=== PATIENT | male | born 1960 | race Caucasian/White ===

== ENCOUNTER → 2019-11-29 12:13 | Outpatient (CLI) | payer OTHER, SELFPAY ==
--- NOTE | ~2019-11-29 | CT_ITS ---
EXAMINATION: CT lung screening EXAM DATE: 11/29/2019 12:45 INDICATION: Personal history of nicotine dependence. TECHNIQUE: Spiral low dose CT of the chest without contrast. Axial, coronal and sagittal images were reviewed. The dose-length product (DLP) for this examination was 134.77 mGy-cm. The exposure was t ailored according to patient size (auto mA exposure control), and iterative reconstruction (ASIR) was used as additional dose reduction technique. There is no prior study for comparison. FINDINGS: The lungs are clear. Mild emphysema. Moderate hyperinflation. Tracheobronchial tree is pat ent. There is no mediastinal, hilar or axillary lymphadenopathy. There are no pleural or pericard ial effusions. There is no pneumothorax. Heart normal in size. No evidence of coronary arterial calcification. There is 3.5 cm left renal lesion which is measuring soft tissue density, could be he morrhagic cyst or solid renal cell cancer. There is mild thoracic spondylosis without osteoblastic o r osteolytic lesions identified. IMPRESSION: 1. Lung-RADS category 1S, negative (<1%chance of malignancy); recommend continued LDCT screening in 1 year. 2. Left renal lesion, possible renal cell cancer; abdomen CT with contrast recommended. I discussed these results with Chirag Colmenares PA-C at 11/29/2019 13:04 GROUP BURNER MACHINE. Reviewed, dictated and finalized at location B. P BURNER MACHINE IMPRESSION: 1. Lung-RADS category 1S, negative (<1%chance of malignancy); recommend continu ed LDCT screening in 1 year. 2. Left renal lesion, possible renal cell cancer; abdomen CT with contrast jd mmended. I discussed these results with Chirag Colmenares PA-C at 11/29/2019 13:04 GROUP BURNER MACHINE.
== END ==
PROVIDERS: PCP Family Medicine; Visit Provider Physician Assistant
DX: Z12.2 Encounter for screening for malignant neoplasm of respiratory organs (principal); Z87.891 Personal history of nicotine dependence
CPT/HCPCS: G0297

== ENCOUNTER → 2019-12-06 14:47 | Outpatient (CLI) | payer OTHER, SELFPAY ==
--- NOTE | ~2019-12-06 | CT_ITS ---
EXAMINATION: CT abdomen pelvis wo/w con EXAM DATE: 12/06/2019 15:35 INDICATION: Anterior, left flank pain, abnormal chest CT. TECHNIQUE: Spiral CT of the abdomen and pelvis was performed without contrast. The patient was then injected with small bolus intravenous Omnipaque 350, followed by delay of approximately 10 minutes to allow collecting system to opacify. A post contrast scan abdomen and pelvis was performed during inj ection of remaining contrast. A total of 130 cc intravenous contrast was administered. The dose-geeta th product (DLP) for this examination was 1620.29 mGy-cm. The exposure was tailored according to pat ient size (auto mA exposure control), and iterative reconstruction (ASIR) was used as additional dose reduction technique. Correlation is made to CT chest 11/29/2019. FINDINGS: There is no hydronephrosis or nephrolithiasis. There is predominantly solid left renal mas s measuring 4.0 cm along the midpole anterior cortex. This does not appear to be invading the hilum o f the kidney. Most likely renal cell cancer. consult is indicated. The calyces and opacified port ions of ureters are unremarkable, without filling defects or focal suspicious strictures. The bladde r is unremarkable. The prostate is unremarkable. The liver, spleen, adrenal glands and pancreas are unremarkable. Gallbladder is unremarkable. No bi liary obstruction. There is no retroperitoneal or pelvic lymphadenopathy. There is mild scattered arteriosclerotic disease. The appendix is normal. The stomach and small bowel are unremarkable. There is mild sigmoid colonic diverticulosis. There is no adjacent inflammatory change to suggest diverticulitis. No free intrape ritoneal gas. The heart is normal in size. There are no pericardial or pleural effusions. The alex g bases are unremarkable. There are no osteoblastic or osteolytic lesions identified. IMPRESSION: 1. Left renal predominantly solid 4 cm mass most likely renal cell cancer. consult. 2. Mild sigmoid diverticulosis. Reviewed, dictated and finalized at location A. L PRESSER
[2019-12-06 15:09] LABS: Estimated Glomerular Filt Rate > 60
== END ==
PROVIDERS: PCP Family Medicine; Visit Provider Physician Assistant
DX: R31.9 Hematuria, unspecified (principal); K57.30 Diverticulosis of large intestine without perforation or abscess without bleeding
CPT/HCPCS: 36415; 74178; Q9967

== ENCOUNTER → 2020-03-30 10:19 | Outpatient (CLI) | payer OTHER, SELFPAY ==
--- NOTE | ~2020-03-30 | US_ITS ---
US scrotum doppler INDICATION: Orchialgia TECHNIQUE: Testicular sonogram utilizing grayscale and color Doppler FINDINGS: The testes are normal in size and appearance. No focal lesions are seen. The right testes measures 4.1 x 2.2 x 2.5 cm centimeters, and the left testis measures 4.2 x 2 x 2.6 cm cm. There is n ormal vascular flow to both testes. The right and left epididymides appear normal. There are bilateral varicoceles. IMPRESSION: 1. Bilateral varicoceles. Reviewed, dictated and finalized at location A. IMPRESSION: 1. Bilateral varicoceles.
== END ==
PROVIDERS: Visit Provider Urology
DX: N50.819 Testicular pain, unspecified (principal); I86.1 Scrotal varices
CPT/HCPCS: 76870; 93976

== ENCOUNTER → 2020-05-04 09:46 | Outpatient (CLI) | payer OTHER, SELFPAY ==
--- NOTE | ~2020-05-04 | CT_ITS ---
EXAMINATION: CT abdomen pelvis wo/w con DATE: 05/04/2020 10:23 INDICATION: Left renal cancer; restaging TECHNIQUE: Computed tomography (CT) of the abdomen and pelvis was performed without and subsequently with 100 cc Omnipaque 350 intravenous contrast. Automated exposure control and iterative reconstructi on technique were employed. Exam dose: 1013.39 mGy-cm total exam DLP. COMPARISON: 12/06/2019 CT abdomen pelvis FINDINGS: Normal heart size. No pericardial or pleural effusion. No infiltrate or consolidation or m ass lesion is evident in the lower included lung zones. There are emphysematous changes. There is a c alcified left lower lobe pulmonary granuloma. There is a left foramen of Bochdalek hernia, containing splenic flexure of colon, without strangulati on or obstruction. The liver, gallbladder, bile ducts, spleen, pancreas, adrenal glands and right kidney are unremarkabl e. Normal caliber of the abdominal aorta. No intraperitoneal or retroperitoneal or pelvic mass lesion or adenopathy or ascites is evident. There is no evidence of any abnormal mass in the left nephrectomy bed. The urinary bladder is unremarkable. The prostate gland is unremarkable. Diverticulosis of the colon; no CT evidence of diverticulitis. No bowel obstruction, bowel wall thick ening, pneumatosis or intraperitoneal free air. There is atherosclerotic calcification of the abdominal aorta but no aneurysm.. No suspicious osteolytic or osteoblastic lesions are noted. IMPRESSION: Status post left nephrectomy; no recurrent or new malignancy is identified Reviewed, dictated and finalized at Location A. Reviewed, dictated and finalized at location B. IMPRESSION: Status post left nephrectomy; no recurrent or new malignancy is id entified
--- NOTE | ~2020-05-04 | XR_ITS ---
XR chest 2V DATE: 05/04/2020 10:02 INDICATION: Left renal cancer TECHNIQUE: PA and lateral views COMPARISON: 07/06/2017 PA and lateral chest FINDINGS: There is bilateral pulmonary hyperinflation consistent with COPD. There is evidence of old pulmonary granulomatous disease. No pulmonary infiltrate or consolidation, pleural effusion or pulmon dangelo vascular congestion or pneumothorax. No hilar or mediastinal enlargement. Normal heart size. Mild aortic arch calcification. IMPRESSION: COPD Reviewed, dictated and finalized at location B. IMPRESSION: COPD
[2020-05-04 10:07] LABS: Estimated Glomerular Filt Rate 48
== END ==
PROVIDERS: PCP Urology; Visit Provider Urology
DX: C64.2 Malignant neoplasm of left kidney, except renal pelvis (principal); J44.9 Chronic obstructive pulmonary disease, unspecified
CPT/HCPCS: 36415; 71046; 74178; Q9967

== ENCOUNTER → 2020-08-18 12:41 | Outpatient (CLI) | payer OTHER, SELFPAY ==
--- NOTE | ~2020-08-18 | US_ITS ---
EXAMINATION: US scrotum doppler EXAM DATE: 08/18/2020 13:09 INDICATION: Left testicular pain . TECHNIQUE: Multiple grayscale and Doppler images of the testicles and scrotum were obtained bilateral ly. There is no prior study for comparison. FINDINGS: Right testicle measures 4.4 x 2.3 x 2.6 cm and is morphologically normal. Low resistance Doppler albaro w confirmed. The epididymis is unremarkable. Small varicocele. Left testicle measures 4.0 x 2.1 x 2.7 cm and is morphologically normal. Low resistance Doppler flow confirmed. The epididymis is unremarkable. Small to moderate-sized varicocele. IMPRESSION: Small to moderate left, small right varicoceles. Reviewed, dictated and finalized at location A. ET BASKET MAKER
== END ==
PROVIDERS: PCP Family Medicine; Visit Provider Physician Assistant
DX: N50.812 Left testicular pain (principal); I86.1 Scrotal varices
CPT/HCPCS: 76870; 93976

== ENCOUNTER → 2020-12-01 11:21 | Outpatient (CLI) | payer OTHER, SELFPAY ==
--- NOTE | ~2020-12-01 | CT_ITS ---
EXAMINATION:CT lung screening DATE: 12/01/2020 11:36 INDICATION: Personal history of tobacco dependence. Current smoker with 40 pack year history. TECHNIQUE: Computed tomography (CT) of the chest was performed without intravenous contrast. Automate d exposure control and iterative reconstruction technique were employed. The dose-length product (DLP ) was 132.00 mGy-cm. COMPARISON: Chest CT 11/29/2019 FINDINGS: Calcified left lung nodules and calcified left hilar lymph nodes are consistent with old gr anulomatous disease. There is stable mild scarring at the lung apices. No pleural effusion. The heart size is normal. No pericardial effusion. There are changes of left nephrectomy. There is mild thorac ic spondylosis. IMPRESSION: 1. Lung-RADS category 2: Benign appearance or behavior. Continue annual screening with noncontrast lo w-dose chest CT in 12 months. Reviewed, dictated and finalized at location A. OW GAUGE ENGINEER IMPRESSION: 1. Lung-RADS category 2: Benign appearance or behavior. Continue annual screeni ng with noncontrast low-dose chest CT in 12 months.
== END ==
PROVIDERS: PCP Physician Assistant; Visit Provider Physician Assistant
DX: Z12.2 Encounter for screening for malignant neoplasm of respiratory organs (principal); Z87.891 Personal history of nicotine dependence
CPT/HCPCS: 71271

== ENCOUNTER → 2021-03-12 15:11 | Outpatient (CLI) | payer OTHER, SELFPAY ==
--- NOTE | ~2021-03-12 | XR_ITS ---
EXAMINATION: XR chest 2V 03/12/2021 15:36 INDICATION: Left renal cancer PROCEDURE: 2 view chest COMPARISON: 05/04/2020 FINDINGS: The lungs are clear. The lungs are hyperinflated which is consistent with, but not diagnost ic of chronic obstructive pulmonary disease. The cardiomediastinal silhouette is within normal limit s. There are no pleural effusions. There is no pneumothorax suspected. There are calcified granulo shook. IMPRESSION: 1: NO ACUTE CARDIOPULMONARY DISEASE. Reviewed, dictated and finalized at location B.
--- NOTE | ~2021-03-12 | CT_ITS ---
EXAMINATION: CT abdomen pelvis wo con DATE: 03/12/2021 15:36 INDICATION: Left renal cancer post nephrectomy. TECHNIQUE: Computed tomography (CT) of the abdomen and pelvis was performed without intravenous contr ast. Automated exposure control and iterative reconstruction technique were employed. The dose-length product was 731.06 mGy-cm. COMPARISON: CT dated 05/04/2020 FINDINGS: Couple small calcified nodules in the left lower lobe along with a few splenic calcifications consist ent with old granulomatous disease. Heart size is normal. No pericardial or pleural effusion. Liver, gallbladder, pancreas, right kidney and bilateral adrenal glands are normal. Status post left nephrec usha with no abnormal masses or soft tissue density in the left nephrectomy bed. Bowels including the appendix are normal. Bladder and prostate are normal. No free intraperitoneal gas or fluid. No patho logically enlarged abdominal or pelvic lymphadenopathy. Chronic Schmorl's node along the superior end plate of L3. No suspicious lytic or blastic bone lesions. IMPRESSION: 1. Status post left nephrectomy. No evident recurrent or metastatic disease. Reviewed, dictated and finalized at location A.
== END ==
PROVIDERS: PCP Physician Assistant; Visit Provider Urology
DX: C64.2 Malignant neoplasm of left kidney, except renal pelvis (principal); N28.9 Disorder of kidney and ureter, unspecified
CPT/HCPCS: 71046; 74176

== ENCOUNTER → 2021-03-27 10:22 | Outpatient (CLI) | payer OTHER, SELFPAY ==
--- NOTE | ~2021-03-27 | US_ITS ---
US scrotum doppler INDICATION: Left testicular pain TECHNIQUE: Testicular sonogram utilizing grayscale and color Doppler FINDINGS: The testes are normal in size and appearance. No focal lesions are seen. The right testes measures 4.1 x 2.4 x 3.2 cm centimeters, and the left testis measures 3.8 x 2.3 x 3.1 cm cm. There is normal vascular flow to both testes. The right and left epididymides appear normal. There are bilateral varicoceles. IMPRESSION: 1. Bilateral varicoceles. Reviewed, dictated and finalized at location A. IMPRESSION: 1. Bilateral varicoceles.
== END ==
PROVIDERS: PCP Physician Assistant; Visit Provider Family Medicine
DX: I86.1 Scrotal varices (principal)
CPT/HCPCS: 76870; 93976

== ENCOUNTER → 2021-09-03 12:32 | Outpatient (CLI) | payer OTHER, SELFPAY ==
--- NOTE | ~2021-09-03 | XR_ITS ---
XR chest 2V 09/03/2021 13:04 Indication: Cancer of the left kidney. Procedure: PA and lateral views of the chest Comparison: 03/12/2021 Findings: There are calcified granulomas in the left lung. No focal air space disease, pulmonary ana paula a, pleural effusion or suspected pneumothorax. Heart size normal. No acute osseous abnormality. Impression: 1: No acute cardiopulmonary disease. Reviewed, dictated and finalized at location A. ER ELECTRICIAN Impression: 1: No acute cardiopulmonary disease.
== END ==
PROVIDERS: Visit Provider Urology
DX: C64.2 Malignant neoplasm of left kidney, except renal pelvis (principal)
CPT/HCPCS: 71046

== ENCOUNTER → 2021-12-15 15:50 | Outpatient (CLI) | payer OTHER, SELFPAY ==
--- NOTE | ~2021-12-15 | CT_ITS ---
EXAMINATION: CT lung screening DATE: 12/15/2021 16:05 INDICATION: Personal history of tobacco dependence. Lung cancer screening. TECHNIQUE: Computed tomography (CT) of the chest was performed without intravenous contrast. The dose -length product was 154.50 mGy-cm. Automated exposure control and iterative reconstruction technique were employed. COMPARISON: CT dated 12/01/2020 FINDINGS: No thoracic lymphadenopathy. Heart size normal. No significant pleural or pericardial effus ion. Normal caliber aorta with atherosclerosis. The left kidney not identified in the upper abdomen, possibly surgically absent. Otherwise, the upper abdomen is unremarkable. There are mild scattered ar eas of pleural thickening in both lungs. No endobronchial lesions. No pneumothorax. There is evidence for chronic granulomatous disease. There is a few small 2 mm nodules in the upper lobes, likely marva gn. No focal airspace consolidation. IMPRESSION: 1. Lung-RADS category 2: Benign appearance or behavior. Continue annual screening with noncontrast lo w-dose chest CT in 12 months. Reviewed, dictated and finalized at location B. IMPRESSION: 1. Lung-RADS category 2: Benign appearance or behavior. Continue annual screeni ng with noncontrast low-dose chest CT in 12 months.
== END ==
PROVIDERS: Visit Provider Physician Assistant
DX: Z12.2 Encounter for screening for malignant neoplasm of respiratory organs (principal); Z87.891 Personal history of nicotine dependence
CPT/HCPCS: 71271

== ENCOUNTER → 2022-02-09 13:45 | Outpatient (CLI) | payer OTHER, SELFPAY ==
--- NOTE | ~2022-02-09 | XR_ITS ---
EXAMINATION: XR chest 2V 02/09/2022 14:09 INDICATION: Left renal cancer PROCEDURE: 2 view chest COMPARISON: 05/04/2020 FINDINGS: The lungs are clear. There are calcified granulomas of the left mid and lower lung. The car diomediastinal silhouette is within normal limits. There are no pleural effusions. There is no pneu mothorax suspected. IMPRESSION: 1: NO ACUTE CARDIOPULMONARY DISEASE. Reviewed, dictated and finalized at location A.
--- NOTE | ~2022-02-09 | CT_ITS ---
EXAMINATION: CT abdomen wo con DATE: 02/09/2022 14:09 INDICATION: Kidney cancer. Left nephrectomy. TECHNIQUE: Computed tomography (CT) of the abdomen was performed without intravenous contrast. Automa rene exposure control and iterative reconstruction technique were employed. Exam dose: 498.76 mGy-cm total exam DLP. COMPARISON: 03/12/[address] abdomen pelvis FINDINGS: Left lower lobe calcified pulmonary granuloma. No pulmonary infiltrate or consolidation at the lung bases. Normal heart size. No pericardial or pleural effusion. The liver, gallbladder, bile ducts, pancreas and pancreatic duct are unremarkable. There are calcifie d splenic granuloma. No splenomegaly. Normal morphology of the adrenal glands. No right renal mass lesion is evident on this limited noncontrast examination. No right renal calculu s or hydronephrosis. Status post left nephrectomy. No suspicious mass is noted in the left nephrectomy bed since 03/12/2021 . There are some shoddy nonenlarged mesenteric lymph nodes. No enlarged periaortic, aortocaval lymph nodes. Normal caliber and mild atherosclerotic calcification of the abdominal aorta and iliac arterie s. No abdominal aortic aneurysm. Included skeletal structures are unremarkable; no suspicious osteolytic or osteoblastic lesions are n oted. IMPRESSION: Left nephrectomy; no significant change since 03/12/2021 Reviewed, dictated and finalized at Location A. Reviewed, dictated and finalized at location B.
== END ==
PROVIDERS: PCP Physician Assistant; Visit Provider Urology
DX: C64.2 Malignant neoplasm of left kidney, except renal pelvis (principal); Z90.5 Acquired absence of kidney
CPT/HCPCS: 71046; 74150

== ENCOUNTER 2022-08-12 07:25 | Outpatient (CLI) | payer OTHER, SELFPAY ==
--- NOTE | ~2022-08-12 | XR_ITS ---
EXAMINATION: XR UGIAC w barium swallow DATE: 08/12/2022 08:12 INDICATION: Cough, right upper quadrant abdominal pain, globus sensation and dysphonia. TECHNIQUE: The patient drank thick barium, gas-producing crystals, and thin barium. A total of 1391 f luoroscopic images of the esophagus, stomach, and proximal small bowel were obtained. Fluoroscopy exp osure time was 2.0 minutes. COMPARISON: None. FINDINGS: The esophagus is normal without mass or stricture. Esophageal motility is normal. Borderlin e very small sliding-type hiatal hernia with the gastroesophageal junction approximately 2.5 cm above level of the diaphragm (normal <2 cm). There was no gastroesophageal reflux with provocative maneuve rs. The stomach and proximal small bowel are normal. IMPRESSION: 1. Borderline very small sliding-type hiatal hernia with no observed gastroesophageal reflux with pro vocative maneuvers. Otherwise normal esophagram and upper GI study. Reviewed, dictated and finalized at location A. TH SPECIALIST IMPRESSION: 1. Borderline very small sliding-type hiatal hernia with no observed gastroesop hageal reflux with provocative maneuvers. Otherwise normal esophagram and upper GI study.
== END 2022-08-12 07:26 | disposition home or self-care (01) ==
PROVIDERS: PCP Physician Assistant; Visit Provider Nurse Practitioner
DX: K21.9 Gastro-esophageal reflux disease without esophagitis (principal); R49.0 Dysphonia; R09.89 Other specified symptoms and signs involving the circulatory and respiratory systems; R07.89 Other chest pain; R06.00 Dyspnea, unspecified; R05.3 Chronic cough; K44.9 Diaphragmatic hernia without obstruction or gangrene
CPT/HCPCS: 74246

== ENCOUNTER 2022-08-30 02:20 | Day surgery (SDC) | payer OTHER, SELFPAY ==
[2022-08-19 11:29] VITALS: BMI 25.0
--- NOTE | 2022-08-30 12:12 | P.PNAN_ITS ---
Anes - Initial Pre Proc Eval Procedure: Operation Date: 08/30/22 13:45 Proposed Procedures p Esophagogastroduodenoscopy & Screening Colonoscopy - Yang Kapoor MD Date/Time: 08/30/22 12:12 Surgeon: Yang Motta MD Pre Op Diagnosis: neoplasm screening, gerd Patient Data Age: 61 Gender: M Height: 1.85 m Weight: 86.25 kg Allergies Allergy/AdvReac Type Severity Reaction Status Date / Time No Known Allergies Allergy Verified 08/30/22 12:15 Home Medications Medication Instructions Recorded Confirmed Type atorvastatin 20 mg tablet 20 mg PO DAILY 08/02/22 08/30/22 History omeprazole 40 mg capsule,delayed 40 mg PO DAILY #30 caps 08/02/22 08/30/22 Rx release Patient hx anesthesia problems: none Family hx anesthesia problems: none Results Review: All pre-operative results and documents have been reviewed as part of the pre- operative evaluation. ON LICENSE OF [facility] Past Medical History Medical History (Updated 08/02/22 @ 10:47 by Priyanka Saleh APRN) Chronic alcohol use Chronic cough Colon cancer screening Globus syndrome Odynophagia Renal cell carcinoma Right-sided chest wall pain Tobacco abuse Surgical History Surgical History History of nephrectomy Family History Family History Mother Osteoarthritis Father Myocardial infarct Social History Social History Smoking packs per day: 0.5 Smoking cigarettes per day: 10.0 Years smoked: 40 Smoking pack-years: 20.00 Smoking status: Current every day smoker Tobacco type: cigarettes Alcohol intake: current Drinks per week: 40 Alcohol use details: 4-6 per day Substance use: never Substance use type: does not use Living arrangements: with family Spiritual care concerns: No Anes - Eval Final PreProcedure Day of Procedure 08/30/22 12:12 Patient weight: normal Heart: regular rate and rhythm Lungs: clear to auscultation and normal air movement Airway: Mallampati scale class II Neurological: alert and oriented Last oral intake: >/= 8 hours ASA classification: III Emergent: no Anesthetic plan: proceed Anesthesia type and monitoring: general GIVS Results Review: All pre-operative results and documents have been reviewed as part of the pre- operative evaluation. Informed Consent: The patient's anesthetic plan and its attendant risks and benefits were discussed with the patient/family/POA. Questions were solicited and answers provided to the satisfaction of the patient/family/POA.
[2022-08-30 12:16] VITALS: BP 142/94; PULSE 72; RESP 18; TEMP 36.3; O2SAT 99; BMI 24.3
[2022-08-30] MEDS: LACTATED RINGERS 1,000 ML 150 ML IV CONT (12:30)
--- NOTE | 2022-08-30 12:55 | WPDHPUPDATE1 ---
History and Physical Update Update Date/Time: 08/30/22 12:55 History and Physical has been reviewed, including an updated exam of the patient. There are NO changes in the patient's condition. Risks, benefits, and alternatives have been discussed and questions answered. Patient agrees to proceed with procedure.
--- NOTE | 2022-08-30 13:02 | SUR.OPER ---
EGD END AT 1306. COLON BEGIN AT 1310.
[2022-08-30 13:22] VITALS: BP 121/83; PULSE 94; RESP 22; O2SAT 99
[2022-08-30 13:32] VITALS: BP 129/89; PULSE 65; RESP 18; O2SAT 100
[2022-08-30 13:42] VITALS: BP 136/92; PULSE 60; RESP 16; O2SAT 100
== END 2022-08-30 13:58 | disposition home or self-care (01) ==
PROVIDERS: PCP Physician Assistant; Visit Provider Internal Medicine Gastroenterology
PROC: 0DJ08ZZ Inspection of Upper Intestinal Tract, Via Natural or Artificial Opening Endoscopic (ICD-10-PCS; CPT 43235; principal; 2022-08-30 13:45)
DX: Z12.11 Encounter for screening for malignant neoplasm of colon (principal); K57.30 Diverticulosis of large intestine without perforation or abscess without bleeding; K64.8 Other hemorrhoids; K21.9 Gastro-esophageal reflux disease without esophagitis; Z90.5 Acquired absence of kidney; F17.210 Nicotine dependence, cigarettes, uncomplicated
CPT/HCPCS: 45378; 43239; 88305; J2704; J7120

== ENCOUNTER → 2022-09-28 10:42 | Outpatient (CLI) | payer OTHER, SELFPAY ==
--- NOTE | ~2022-09-28 | XR_ITS ---
EXAMINATION: XR chest 2V DATE: 09/28/2022 11:02 INDICATION: Cough and shortness of breath TECHNIQUE: PA and lateral views of the chest are obtained. COMPARISON: 02/09/2022 FINDINGS: The lungs are free of acute opacities. No pleural effusion or pneumothorax. The cardiomedia stinal silhouette is normal. There is mild thoracic spondylosis. A calcified nodule of the left lower lobe is consistent with old granulomatous disease. IMPRESSION: 1. No acute cardiopulmonary abnormality. Reviewed, dictated and finalized at location B. LASTER
== END ==
PROVIDERS: PCP Physician Assistant; Visit Provider Nurse Practitioner
DX: R06.02 Shortness of breath (principal); R09.89 Other specified symptoms and signs involving the circulatory and respiratory systems
CPT/HCPCS: 71046

== ENCOUNTER 2022-09-30 09:04 | Outpatient (CLI) | payer OTHER, SELFPAY ==
--- NOTE | 2022-09-30 12:49 | WPDPFTINT ---
PFT Procedure Performed PFT Procedure Performed Spirometry with Pre/Post Bronchodilator Plethysmography (Lung Vol) Diffusing Cap (DLCO) Flow Vol Loop PFT Interpretation Lung volumes were measured with the body plethysmography method. Lung volumes are unremarkable. Spirometry showed diminished expiratory flow rates and a diminished FEV1 to FVC ratio of 55%, indicative of obstructive airway disease. Following administration of a bronchodilator there was significant increase in the expiratory flow rates. Lung diffusion capacity is within the normal range at 81% predicted. The flow-volume loop is consistent with obstructive airway disease. Impression: Moderate obstructive airway disease with significant response to bronchodilators on this testing. Lung diffusion capacity within the normal range.
== END 2022-09-30 09:05 | disposition home or self-care (01) ==
LOC: ANHPFT 09:08
PROVIDERS: PCP Physician Assistant; Visit Provider Internal Medicine Pulmonary Disease
DX: R05.3 Chronic cough (principal)
CPT/HCPCS: 94060; 94726; 94729

== ENCOUNTER 2022-12-26 09:00 | Outpatient (CLI) | payer OTHER, SELFPAY ==
--- NOTE | ~2022-12-26 | CT_ITS ---
CT Scan of the Chest without Contrast: Clinical Indication: Lung cancer screening, current smoker Technique: Contiguous sections were acquired throughout the chest without intravenous contrast. Dose reduction technique was used on this scan by utilizing automated exposure control and iterative recon struction technique. The dose-length product (DLP) was 173.01 mGy-cm. COMPARISON: 05/17/2022, 11/29/2019 Findings: There is no evidence of any significant mediastinal, hilar or axillary lymphadenopathy. 07 mediastina l and left hilar lymph nodes are noted. The mediastinal soft tissues appear normal. There is no evidence of pleural or pericardial effusion. Calcified granulomas noted in the left lower lobe and along the left oblique fissure. No noncalcified pulmonary nodule identified. Images through the upper abdomen reveal evidence of prior left nephrectomy. Impression: Lung-RADS 2: Benign appearance. [address] advised. Reviewed, dictated and finalized at [facility]. Impression: Lung-RADS 2: Benign appearance. [address] advised.
== END 2022-12-26 09:01 | disposition home or self-care (01) ==
PROVIDERS: PCP Physician Assistant; Visit Provider Internal Medicine Pulmonary Disease
DX: Z12.2 Encounter for screening for malignant neoplasm of respiratory organs (principal); F17.210 Nicotine dependence, cigarettes, uncomplicated
CPT/HCPCS: 71271

== ENCOUNTER → 2023-10-11 12:25 | Outpatient (CLI) | payer OTHER, SELFPAY ==
--- NOTE | ~2023-10-11 | XR_ITS ---
EXAM: XR_[id number]_CR DATE: 10/11/2023 12:56 HISTORY: Neck pain . COMPARISON: None available. FINDINGS: Craniocervical association and atlantoaxial joint are aligned. Moderate degenerative harvey e at the atlantodental interval. No prevertebral soft tissue swelling. 2 mm anterolisthesis at C4-5. Vertebral body heights are maintained. Normal disc spaces. Multilevel mild disc space narrowing and m arginal osteophytosis. Multilevel mild facet sclerosis and hypertrophy. Clear apices. IMPRESSION: Grade 1 anterolisthesis at C4-5. Multilevel mild degenerative disc disease and facet arth ropathy. Reviewed, dictated and finalized at location K. M INSPECTOR IMPRESSION: Grade 1 anterolisthesis at C4-5. Multilevel mild degenerative disc disease and facet arthropathy.
== END ==
PROVIDERS: PCP Physician Assistant; Visit Provider Physician Assistant
DX: M47.892 Other spondylosis, cervical region (principal); M50.321 Other cervical disc degeneration at C4-C5 level
CPT/HCPCS: 72040

== ENCOUNTER 2023-12-27 10:20 | Outpatient (CLI) | payer OTHER, SELFPAY ==
--- NOTE | ~2023-12-27 | CT_ITS ---
EXAMINATION: CT lung screening DATE: 12/27/2023 10:31 INDICATION: Personal history of nicotine dependence TECHNIQUE: Computed tomography (CT) of the chest was performed without intravenous contrast. The dose -length product was 140.85 mGy-cm. Automated exposure control and iterative reconstruction technique were employed. COMPARISON: CT dated 12/26/2022 FINDINGS: No thoracic lymphadenopathy. No significant pleural or pericardial effusion. There is evide nce of chronic granulomatous disease. No significant pleural or pericardial effusion. Upper abdomen i s unremarkable. There is apical pleural thickening/scarring. No noncalcified pulmonary nodules are se en. No pneumothorax. No endobronchial lesions. IMPRESSION: 1. Lung-RADS category 1: Negative. Continue annual screening with noncontrast low-dose chest CT in 12 months. Reviewed, dictated and finalized at location B. IMPRESSION: 1. Lung-RADS category 1: Negative. Continue annual screening with noncontrast l ow-dose chest CT in 12 months.
== END 2023-12-27 10:21 ==
LOC: MICIMG 10:21
PROVIDERS: PCP Physician Assistant; Visit Provider Physician Assistant
DX: Z12.2 Encounter for screening for malignant neoplasm of respiratory organs (principal); Z87.891 Personal history of nicotine dependence
CPT/HCPCS: 71271

== ENCOUNTER 2024-09-26 14:47 | Outpatient (CLI) | payer OTHER, SELFPAY ==
--- NOTE | ~2024-09-26 | US_ITS ---
EXAMINATION: US renal BI DATE: 09/26/2024 15:02 INDICATION: Left renal cancer post nephrectomy TECHNIQUE: Multiple ultrasound grayscale images of the kidneys were obtained. COMPARISON: None. FINDINGS: The right kidney measures 10.8 x 5.8 x 4.6 cm. The left kidney is not visualized consistent with repo rted history of prior left nephrectomy. The right kidney demonstrates normal echogenicity with no hyd ronephrosis. No renal stones identified. The bladder is normal. IMPRESSION: 1. Normal right kidney without hydronephrosis. Status post left nephrectomy. Reviewed, dictated and finalized at location B. 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
--- NOTE | ~2024-09-26 | XR_ITS ---
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 RESULT: Lines, tubes, and devices: None. Lungs and pleura: Clear. Minimal right apical pleural scarring. Calcified granulomas. Cardiomediastinal silhouette: Stable. Calcified lymph nodes. Other: No acute osseous or upper abdominal finding. IMPRESSION: No acute cardiopulmonary process. Reviewed, dictated and finalized at location K. ESTATE TEACHER
== END 2024-09-26 14:48 | disposition home or self-care (01) ==
LOC: MICIMG 14:48
PROVIDERS: PCP Physician Assistant; Visit Provider Urology
DX: C64.2 Malignant neoplasm of left kidney, except renal pelvis (principal); Z90.5 Acquired absence of kidney
CPT/HCPCS: 71046; 76775

== ENCOUNTER 2024-12-27 08:46 | Outpatient (CLI) | payer OTHER, SELFPAY ==
--- NOTE | ~2024-12-27 | CT_ITS ---
EXAMINATION:CT lung screening DATE: 12/27/2024 08:59 INDICATION: Personal history of nicotine dependence. Current smoker with 20 pack year history. TECHNIQUE: Computed tomography (CT) of the chest was performed without intravenous contrast. Automate d exposure control and iterative reconstruction technique were employed. The dose-length product (DLP ) was 160.80 mGy-cm. COMPARISON: Chest CT 12/27/2023 FINDINGS: The lungs demonstrate minimal atelectasis. Calcified left lung nodules and calcified left h ilar lymph nodes are consistent with old granulomatous disease. There is stable mild peripheral scarr ing in the upper lobes. No pleural effusion. The heart size is normal. No pericardial effusion. Calci fications in the spleen are consistent with old granulomatous disease. There is mild thoracic spondyl osis. IMPRESSION: 1. Lung-RADS category 2: Benign appearance or behavior. Continue annual screening with noncontrast lo w-dose chest CT in 12 months. Reviewed, dictated and finalized at location A. IMPRESSION: 1. Lung-RADS category 2: Benign appearance or behavior. Continue annual screeni ng with noncontrast low-dose chest CT in 12 months.
== END 2024-12-27 08:47 | disposition home or self-care (01) ==
LOC: MICIMG 08:47
PROVIDERS: PCP Physician Assistant; Visit Provider Nurse Practitioner Family
DX: Z12.2 Encounter for screening for malignant neoplasm of respiratory organs (principal); Z87.891 Personal history of nicotine dependence
CPT/HCPCS: 71271

== ENCOUNTER 2025-08-12 15:47 | Outpatient (CLI) | payer OTHER, SELFPAY ==
--- NOTE | ~2025-08-12 | XR_ITS ---
XR shoulder RT min 2V HISTORY: Low back pain, unspecified . COMPARISON: None. FINDINGS: External and internal rotated views and axillary view of the right shoulder demonstrate no acute fracture or dislocation. Acromioclavicular joint and glenohumeral joint are unremarkable. IMPRESSION: No acute fracture or dislocation. Reviewed, dictated and finalized at location S. S ENGAGEMENT MANAGER
--- NOTE | ~2025-08-12 | XR_ITS ---
XR lumbar spine 2-3V Indication: Low back pain, unspecified Comparison: None Findings: Moderate loss of vertebral height, no fracture or subluxation. Mild loss of disc height throughout. Soft tissues unremarkable Impression: No acute abnormality. Reviewed, dictated and finalized at location P. 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
== END 2025-08-12 15:48 | disposition home or self-care (01) ==
PROVIDERS: PCP Physician Assistant; Visit Provider Physician Assistant
DX: M54.50 Low back pain, unspecified (principal); M25.511 Pain in right shoulder
CPT/HCPCS: 72100; 73030